=== PATIENT | male | born 1950 | race Caucasian/White ===

== ENCOUNTER 2018-07-14 06:59 | Emergency (ER) | payer MEDICARE, BC ==
[~2018-07-14] VITALS: Ht 180.3 cm; Wt 104.5 kg
[~2018-07-14 06:59] MED LIST: ASPI-1265 PO; SOTA80TA73 PO
[2018-07-14] MEDS ORDERED: aspirin 81mg tab.chew PO ONE (07:10)
[2018-07-14] MEDS: nitroGLYCERIN 0.4mg SUBLingual tab SL PRN ×2 (07:31→07:36)
[2018-07-14 07:35] LABS: BASOPHILS % (AUTO) 0.3 % (0-1); EOSINOPHILS # (AUTO) 0.2 X10'3 (0-0.9); EOSINOPHILS % (AUTO) 1.5 % (0-6); HEMATOCRIT 40.5 % (42.0-52.0); HEMOGLOBIN 14.4 g/dl (14.0-17.9); LYMPHOCYTES # (AUTO) 1.6 X10'3 (1.1-4.8); LYMPHOCYTES % (AUTO) 12.7 % (21-51); MEAN CORPUSCULAR HEMOGLOBIN 35.5 PG (27.0-31.0); MEAN CORPUSCULAR HGB CONC 35.5 g/dL (33.0-36.5); MEAN CORPUSCULAR VOLUME 100.1 FL (78-98); MEAN PLATELET VOLUME 9.2 FL (7.4-10.4); MONOCYTES # (AUTO) 0.7 X10'3 (0-0.9); MONOCYTES % (AUTO) 5.2 % (2-12); NEUTROPHILS # (AUTO) 10.3 X10'3 (1.8-7.7); NEUTROPHILS % (AUTO) 80.3 % (42-75); PLATELET COUNT 184 X10'3 (140-440); RED BLOOD COUNT 4.04 X10'6 (4.70-6.10); RED CELL DISTRIBUTION WIDTH 13.2 % (11.5-14.5); WHITE BLOOD COUNT 12.9 X10'3 (4.5-11.0)
[2018-07-14] MEDS ORDERED: fentaNYL/PF 50MCG/1 ML 2ML syringe IV ONE (07:45)
[2018-07-14 07:46] LABS: ALANINE AMINOTRANSFERASE 75 U/L (12-78); ALBUMIN/GLOBULIN RATIO 1.3 (1.1-1.5); ALKALINE PHOSPHATASE 94 IU/L (46-116); ANION GAP 10 (8-16); ASPARTATE AMINO TRANSFERASE 36 U/L (10-37); BILIRUBIN,TOTAL 0.5 MG/DL (0.1-1.0); BLOOD UREA NITROGEN 21 MG/DL (7-18); BUN/CREATININE RATIO 18.9 (5.4-32.0); CALCIUM 8.8 MG/DL (8.5-10.1); CHLORIDE 105 MMOL/L (99-107); CREATININE 1.11 MG/DL (0.60-1.10); GLUCOSE 114 MG/DL (70-104); POTASSIUM 3.6 MMOL/L (3.5-5.1); SODIUM 141 MMOL/L (135-145); TOTAL CARBON DIOXIDE 25.6 MMOL/L (24-32); TOTAL PROTEIN 7.2 G/DL (6.4-8.2); eGFR 66 ML/MIN
--- NOTE | 2018-07-14 07:46 | NUR ---
Dr Holt notified that patients cp is unchanged after 2 nitro. Patient is now feeling flushed and light headed. Patient put in a flat supine position. Patient states that this position makes him uncomfortable and wishes to have his head up again. Patient but in a fowlers position since light headedness was unchanged in flat supine.
[2018-07-14 07:52] LABS: MAGNESIUM 1.7 MG/DL (1.5-2.4)
[2018-07-14] MEDS ORDERED: iohexol 350MG/ML 100ml bottle IV ONE (07:54)
[2018-07-14] MEDS ORDERED: ondansetron/PF 4mg/2ml inj IV ONE (08:10)
[2018-07-14 11:25] VITALS: BP 131/66
== END 2018-07-14 11:31 | disposition home or self-care (01) ==
LOC: ER 06:59
DX: R07.9 Chest pain, unspecified (principal); Z90.89 Acquired absence of other organs
CPT/HCPCS: 36415; 71045; 71275; 80053; 83735; 83880; 84484; 85025; 93005; 96374; 96375; 99284; J2405; J3010; Q9967